=== PATIENT | male | born 1945 ===

== ENCOUNTER → 2016-06-24 | Outpatient (CLI) | payer OTHER ==
--- NOTE | 2016-06-24 14:56 | NM ---
Nuclear Medicine Whole Body Bone Scan Indication: 70-year-old with prostate cancer, rising PSA. Comparison: CT abdomen and pelvis from [facility] the same day, Rib series and bone scan December 05, 2015. Technique: 20.6 mCi technetium 99m MDP were injected intravenously. Delayed images of the skeleton were obtained in anterior and posterior projections. Findings: There is new prominent focal uptake in the distal left femoral diametaphysis consistent wit h a metastasis. There is decreased focal uptake in the right posterolateral 11th rib. Degenerative up take in the shoulders, first carpometacarpal joints, and knees is again noted. Maxillary and mandible uptake is likely related to periodontal disease. Curvilinear uptake in the anterior pelvis has no co rrelate on the CT from the same day and may be related to urine artifact or incomplete bladder fillin g. Normal renal and bladder uptake is present. Impression: 1. New focal uptake in the distal left femur, consistent with metastasis. 2. Healing posterolateral right 11th rib fracture. Findings discussed with Yeyo Lund's medical physiologist, today at 1524 hours.
== END ==
LOC: FIMAGING 09:05
PROVIDERS: ATTEND Internal Medicine Hematology & Oncology
DX: R97.20 Elevated prostate specific antigen [PSA] (principal); C61 Malignant neoplasm of prostate
CPT/HCPCS: 78306; A9503

== ENCOUNTER → 2016-06-28 | Outpatient (CLI) | payer OTHER ==
--- NOTE | 2016-06-28 14:38 | DX ---
Left femur 2 views History: Probable metastasis on bone scan. History of prostate cancer. Comparison: Bone scan June 24, 2016. Findings: There is subtle sclerosis in the distal femoral diametaphysis, best seen on the lateral vie w, likely corresponding to the area of uptake on bone scan. Alignment at the hip and knee is normal w ith mild osteoarthritis in the hip and mild to moderate osteoarthritis in the knee, more prominent in the medial compartment with joint space narrowing in the medial and lateral compartments. Mild brown lofemoral osteoarthritis is present. Impression: Subtle sclerosis in the distal femur, suspicious for metastasis, likely corresponding to the uptake on bone scan.
== END ==
LOC: FIMAGING 09:47
PROVIDERS: ATTEND Internal Medicine Hematology & Oncology
DX: M89.8X5 Other specified disorders of bone, thigh (principal); Z85.46 Personal history of malignant neoplasm of prostate

== ENCOUNTER → 2018-03-29 | Outpatient (CLI) | payer OTHER | LOC: FIMAGING 09:34 | PROVIDERS: ATTEND Internal Medicine Hematology & Oncology | DX: C61 Malignant neoplasm of prostate (principal); R93.7 Abnormal findings on diagnostic imaging of other parts of musculoskeletal system | CPT/HCPCS: 78306; A9503 ==